=== PATIENT | male | born 1995 | race Caucasian/White ===

== ENCOUNTER 2016-10-21 10:05 | Emergency (ER) | payer BC ==
[~2016-10-21] VITALS: Ht 182.9 cm; Wt 61.2 kg
--- NOTE | ~2016-10-21 | CT4 ---
[facility] A Service of [facility] RADIOLOGY TEXT RESULTS PATIENT: PEYMAN HOPKINS LOCATION: [facility] : [birth year] UNIT #: [id number] AGE: [address]: Santiago De Los Santos MD SEX: M ORDER DR: [id number] [facility] [address] [place], [place] [address] [id number] E MR#: [id number] Acc #: [id number] NAME: PEYMAN HOPKINS. : 1995 SEX: M STUDY DATE/TIME: 10/21/2016 15:33 UNIT: [facility] ROOM: STUDY DESCRIPTION: CT Abd and Pelv Wo Cont Attending Physician: Santiago De Los Santos M.D. Ordering Physician: Santiago De Los Santos M.D. Primary Care Physician: Branden Calloway M.D. MEDICAL IMAGING REPORT This report is preliminary unless electronic signature is present EXAM CT abdomen and pelvis, 10/21/2016 INDICATION Right flank pain for the last 2 days. TECHNIQUE Axial noncontrast images were obtained through the abdomen and pelvis. Multiplanar reformats were obtained. No comparison. This CT exam was performed with one or more of the following radiation dose reduction techniques: automatic exposure control, adjustment of mA and/or kV according to patient size, and iterative reconstruction. FINDINGS ABDOMEN: Lung bases are clear. There is mild right hydronephrosis secondary to a 2 mm stone in the distal right ureter. No other kidney stones are seen. Spleen is enlarged. The liver is markedly abnormal. The left lobe and caudate lobe are both hypertrophied while the right lobe is relatively atrophied and hypodense. This may be secondary to remote vascular insult. Low attenuation changes noted in the left hepatic lobe appear to represent prominent vasculature. Correlation with history is recommended. If this has not been performed elsewhere, the patient would benefit from multiphase liver MRI or CT on a nonemergent basis. Calcifications in the atrophied right hepatic lobe may be dystrophic. Gallbladder grossly normal. There is however, some free fluid adjacent to the liver. The left kidney, adrenal glands and pancreas are within normal limits. Unopacified GI tract is grossly normal. PELVIS: Urinary bladder is normal. Remainder of the unopacified GI tract is normal as well. [facility] A Service of [facility] RADIOLOGY TEXT RESULTS PATIENT: PEYMAN HOPKINS LOCATION: [facility] : [birth year] UNIT #: [id number] AGE: [address]: Santiago De Los Santos MD SEX: M ORDER DR: IMPRESSION 1. Mild right hydronephrosis secondary to a 2 mm stone near the UVJ. 2. Markedly abnormal appearance to the liver with hypertrophy of the left hepatic lobe and caudate lobe. There is relative atrophy of the right hepatic lobe with diffuse low attenuation change within it. This may be secondary to a remote vascular injury but is nonspecific. Dystrophic calcifications are present in the right lobe of the liver. If this has not been performed elsewhere, consider nonemergent multiphase liver CT or MRI for followup. 3. Tract amount of free fluid adjacent to the liver. 4. Splenomegaly. 5. Grossly normal unopacified GI tract. Dictated by... Param Hall Jr., M.D. THIS IS AN ELECTRONICALLY VERIFIED REPORT Param Hall Jr., M.D. at 10/22/2016 7:20 AM DAWIT/paulino TD: 10/22/2016 05:22 JOB #: [id number] MEDICAL IMAGING REPORT Page 1 of 1 COPY
--- NOTE | ~2016-10-21 | US67 ---
[facility] A Service of [facility] & [facility] RADIOLOGY TEXT RESULTS PATIENT: PEYMAN HOPKINS LOCATION: [facility] : [birth year] UNIT #: [id number] AGE: [address]: Santiago De Los Santos MD SEX: M ORDER DR: [id number] [facility] [address] [place], [place] [address] [id number] E MR#: [id number] Acc #: [id number] NAME: PEYMAN HOPKINS. : 1995 SEX: M STUDY DATE/TIME: 10/21/2016 13:21 UNIT: [facility] ROOM: STUDY DESCRIPTION: Gallbladder Attending Physician: Santiago De Los Santos M.D. Ordering Physician: Santiago De Los Santos M.D. Primary Care Physician: Branden Calloway M.D. MEDICAL IMAGING REPORT This report is preliminary unless electronic signature is present EXAM Gallbladder sonogram. CLINICAL HISTORY Right upper quadrant pain for 1 day. History of kidney stones. No prior surgery. FINDINGS Real-time examination demonstrates mild, diffuse gallbladder wall thickening measuring upper limits of normal, at about 3 mm. There is sludge within the gallbladder. No definite stones. No ductal dilatation. Common bile duct measures 2.8 mm. Liver appears normal. The right kidney demonstrates some increased echogenicity relative to the liver, could reflect medical renal disease. Anechoic lesion seen in medial aspect of the kidney could represent extrarenal pelvis. There is also mild prominence of the renal collecting system, which could reflect mild hydronephrosis. Visualized pancreatic bed unremarkable. IMPRESSION 1. Gallbladder sludge with mild, diffuse prominence of the gallbladder wall, at the upper limits of normal, but no convincing evidence of acute cholecystitis. 2. Mild prominence of the renal collecting system right renal pelvis could reflect early hydro or possibly extrarenal pelvis. Dictated by... Chidi Call M.D. THIS IS AN ELECTRONICALLY VERIFIED REPORT Chidi Call M.D. at 10/22/2016 10:15 AM EARNEST/maren STS. [facility] A Service of [facility] & [facility] RADIOLOGY TEXT RESULTS PATIENT: PEYMAN HOPKINS [facility] [id number] : [birth year] UNIT #: [id number] AGE: [address]: Santiago De Los Santos MD SEX: M ORDER DR: TD: 10/21/2016 23:16 JOB #: [id number] MEDICAL IMAGING REPORT Page 1 of 1 COPY
[~2016-10-21 10:05] MED LIST: FOLIC ACID1 MG PO; IMURAN50 MG PO; LIALDA1.2 G PO; MULTIVITAMINS1 EAC1 PO; OMEPRAZOLE40 MG PO; SERTRALINE HCL50 M1 PO
[2016-10-21 10:55] LABS: BASOPHIL% 0.2 % (0-2.5); EOSINOPHIL# 0.1 X10e3 (0-0.7); EOSINOPHIL% 0.8 % (0.0-7.0); HEMATOCRIT 48.4 % (38.0-50.0); HEMOGLOBIN 16.1 gm/dL (13.0-16.0); LYMPHOCYTE# 0.8 X10e3 (1.0-3.5); LYMPHOCYTE% 9.9 % (17.0-45.0); MEAN CELL VOLUME 89.8 FL (83-96); MEAN CORPUSCULAR HEMOGLOBIN 29.8 PG (28-34); MEAN CORPUSCULAR HGB CONC 33.2 g/dL (30-36); MEAN PLATELET VOLUME 7.6 FL (6.5-11.5); MONOCYTE# 0.5 X10e3 (0-1.0); NEUTROPHIL% 83.1 % (40-75); PLATELET COUNT 292 X10e3 (140-420); RED BLOOD COUNT 5.39 X10e (3.90-5.60); RED CELL DISTRIBUTION WIDTH 14.1 % (11.0-15.5); WHITE BLOOD COUNT 8.4 X10e3 (4.0-10.5)
[2016-10-21 10:56] LABS: DIFF IND NO
[2016-10-21 11:13] LABS: URINE SOURCE CLEAN CATCH
[2016-10-21 11:20] LABS: URINE APPEARANCE CLEAR; URINE BILIRUBIN NEG (NEG); URINE BLOOD TRACE (NEG); URINE COLOR YELLOW; URINE GLUCOSE NEG (NEG); URINE KETONE NEG (NEG); URINE LEUKOCYTE ESTERASE NEG (NEG); URINE NITRATE NEG (NEG); URINE PH 7.5 (5-8); URINE PROTEIN NEG (NEG); URINE UROBILINOGEN 0.2 MG/DL (NEG)
[2016-10-21 11:22] LABS: CULTURE INDICATED? NO; URBCS1 AUWI 0-2 /[HPF] (0-2); URINE BACTERIA AUWI NEG (NEGATIVE); URINE SQUAMOUS EPITHELIAL CELL NONE SEEN /[HPF]; UWBCS1 AUWI 0-2 (0-5)
[2016-10-21 11:28] LABS: BILIRUBIN, DIRECT 0.3 mg/dL (0.0-0.2); BILIRUBIN,INDIRECT 0.8 mg/dL (0.0-0.9); BILIRUBIN,TOTAL 1.1 mg/dL (0.2-2.0); CALCIUM SERUM 9.5 mg/dL (8.4-10.2); GLOM FILT RATE Estimated 106.4 mL/min (>60); POTASSIUM 3.6 mmol/L (3.5-5.1); PROTEIN TOTAL SERUM 7.3 g/dL (6.0-8.3)
== END 2016-10-21 16:35 | disposition home or self-care (01) ==
LOC: CED 10:05
DX: N13.2 Hydronephrosis with renal and ureteral calculous obstruction (principal); Z79.899 Other long term (current) drug therapy
CPT/HCPCS: 36415; 74176; 76705; 80048; 80076; 81003; 83690; 85025; 96361; 96374; 99284; J1885